=== PATIENT | female | born 1955 | race Caucasian/White ===

== ENCOUNTER 2018-08-07 07:12 | Day surgery (SDC) | payer BC ==
[~2018-08-07 07:12] MED LIST: DIPHENHYDRAMINE 50 MG CAP PO
[2018-08-07 08:50] LABS: ADD MAN DIFF? NO
[2018-08-07 08:52] LABS: BASOPHIL # 0.1 10^3/ul (0.0-0.1); BASOPHILS % 0.5 % (0.0-2.0); EOSINOPHILS # 0.1 10^3/ul (0.0-0.5); EOSINOPHILS % 1.2 % (0.0-7.0); HEMATOCRIT 38.3 % (37.0-47.0); HEMOGLOBIN 12.4 g/dl (12.0-16.0); LYMPHOCYTES # 3.2 10^3/ul (0.8-2.9); LYMPHOCYTES % 34.9 % (15.0-51.0); MEAN CORPUSCULAR HEMOGLOBIN 27.3 pg (29.0-33.0); MEAN CORPUSCULAR HGB CONC 32.4 g/dl (32.0-37.0); MEAN CORPUSCULAR VOLUME 84.4 fl (82.0-101.0); MONOCYTE # 0.7 10^3/ul (0.3-0.9); MONOCYTES % 7.7 % (0.0-11.0); NEUTROPHIL # 5.1 10^3/ul (1.6-7.5); NEUTROPHILS % 55.3 % (39.0-77.0); PLATELET COUNT 220 10^3/UL (140-415); RED BLOOD COUNT 4.54 10^6/ul (4.20-5.40)
[2018-08-07 08:52] LABS: WHITE BLOOD COUNT 9.2 10^3/ul (4.8-10.8)
[2018-08-07 09:12] LABS: ALANINE AMINOTRANSFERASE 34 IU/L (13-69); ALBUMIN 4.1 g/dl (3.3-4.9); ALKALINE PHOSPHATASE 116 IU/L (42-121); ANION GAP 8 (5-13); ASPARTATE AMINO TRANSFERASE 31 IU/L (15-46); BILIRUBIN,INDIRECT 0.2 mg/dl (0-1.1); BILIRUBIN,TOTAL 0.2 mg/dl (0.2-1.3); BLOOD UREA NITROGEN 9 mg/dl (7-20); CARBON DIOXIDE 26 mmol/L (21-31); CHLORIDE 105 mmol/L (97-110); CHOL/HDL RATIO 7.2 RATIO; CHOLESTEROL 270 mg/dl (100-200); Estimated GFR > 60 mL/min (>60); GLUCOSE 211 mg/dl (70-220); HDL CHOLESTEROL 37 mg/dl (35-98); LDL CHOLESTEROL,CALCULATED 164 mg/dl; SODIUM 139 mmol/L (135-144); TOTAL PROTEIN 7.5 g/dl (6.1-8.1); TRIGLYCERIDES 345 mg/dl (0-149)
[2018-08-07] MEDS: DIAZEPAM 5 MG TAB PO (09:23)
[2018-08-07] MEDS: FAMOTIDINE 20 MG TAB PO (09:23)
[2018-08-07] MEDS: SOD CHLORIDE 0.45% 1,000 ML IV (09:24)
[2018-08-07] MEDS ORDERED: FENTAnyl 50 MCG/ML VIAL (09:28)
[2018-08-07] MEDS ORDERED: HEPARIN 1000 UNITS/ML 10 ML INJ (09:28)
[2018-08-07] MEDS ORDERED: MIDAZOLAM 1 MG/ML 2 ML INJ (09:28)
[2018-08-07] MEDS ORDERED: NITROGLYCERIN (IC) 100 MCG/ML INJ (09:29)
[2018-08-07] MEDS ORDERED: VERAPAMIL 5 MG INJ (09:29)
[2018-08-07 09:32] LABS: CREATININE 0.38 mg/dl (0.44-1.00)
[2018-08-07 10:10] LABS: ANISOCYTOSIS 2+ (0-0); BAND NEUTROPHILS #M 0.3 10^3/ul (0.0-0.6); BAND NEUTROPHILS % (M) 4 % (0-4); BASOPHILS % (M) 1 % (0-2); EOSINOPHILS % (M) 3 % (0-7); LYMPHOCYTES #M 3.8 10^3/ul (0.8-2.9); LYMPHOCYTES % (M) 42 % (15-51); MICROCYTOSIS 1+ (0-0); MONOCYTES % (M) 1 % (0-11); PLATELET ESTIMATE NORMAL; POIKILOCYTOSIS 1+ (0-0); POLYCHROMASIA 1+ (0-0); REACTIVE LYMPHOCYTES #M 0.2 10^3/ul (0.0-0.0); REACTIVE LYMPHOCYTES% (M) 3 % (0-0); SEG NEUT #M 4.3 10^3/ul (1.6-7.5); SEGMENTED NEUTROPHILS (M) % 46 % (39-77); SMUDGE%M 6 % (0-0)
[2018-08-07 10:11] LABS: INR 0.98; PROTIME 13.1 Sec (11.9-14.9)
[2018-08-07 10:12] LABS: PARTIAL THROMBOPLASTIN TIME 29.3 Sec (23.0-35.0)
[2018-08-07] MEDS ORDERED: IODIXANOL LOCM 100 ML BTL (10:16)
[2018-08-07] MEDS ORDERED: LIDOCAINE 1% (MDV) 20 ML INJ (10:16)
[2018-08-07] MEDS ORDERED: morphine 2 MG INJ IV (11:00)
[2018-08-07] MEDS ORDERED: ACETAMINOPHEN 325 MG TAB PO (11:00)
[2018-08-07] MEDS ORDERED: ONDANSETRON 4 MG INJ IV (11:00)
[2018-08-07] MEDS ORDERED: AL HYDROX/MG HYDROX/SIMETH 30 ML CUP PO (11:00)
[2018-08-07] MEDS ORDERED: hydrALAzine 20 MG INJ (11:47)
[2018-08-07] MEDS: hydrALAzine 20 MG INJ IV (11:50)
[2018-08-07] MEDS: SOD CHLORIDE 0.9% 1,000 ML IV (12:02)
== END 2018-08-07 14:25 | disposition home or self-care (01) ==
LOC: SDS 07:12
DX: I25.10 Atherosclerotic heart disease of native coronary artery without angina pectoris (principal); I10 Essential (primary) hypertension; E78.5 Hyperlipidemia, unspecified
CPT/HCPCS: 71045; 80053; 80061; 82962; 85025; 85610; 85730; 93005; 93458